=== PATIENT | female | born 1940 | race Caucasian/White ===

== ENCOUNTER → 2018-02-19 | Day surgery (SDC) | payer MEDICARE, OTHER ==
[~2018-02-19] MED LIST: Lactated Ringers 1,000 ML IV SCH; Propofol 200 MG/20 ML SDV IV ONE
--- NOTE | 2018-02-19 10:02 | OR ---
DATE OF OPERATION: 02/19/2018 PREOPERATIVE DIAGNOSIS: FAMILY HISTORY OF COLON CANCER. POSTOPERATIVE DIAGNOSIS: FAMILY HISTORY OF COLON CANCER. SURGEON: Bairon Nieves MD PROCEDURE: FULL-LENGTH COLONOSCOPY WITH BIOPSIES X1. ANESTHESIA: GUN PROFILER. COMPLICATIONS: None. SPECIMEN: Biopsy x1 submucosal lipoma. FINDINGS: 1. Full-length colonoscopy. 2. Mild sigmoid diverticulosis. 3. Small submucosal lipoma, distal transverse colon. RECOMMENDATIONS: Followup colonoscopy in 5 years. INDICATIONS: The patient is due for routine colonoscopy for an indication of colon cancer in the family. DESCRIPTION OF PROCEDURE: The patient was prepped and draped, placed in the left lateral decubitus position. A lubricated Olympus colonoscope was inserted and easily and safely advanced to the cecum. Direct visualization of the ileocecal valve and appendiceal orifice was accomplished. The bowel prep was adequate. Upon withdrawal of the scope, cecum, ascending and most transverse colon were completely benign and in its distal portion before the splenic flexure, the patient had a small what appeared to be a submucosal lipoma. Biopsy was taken for confirmation. The rest of the descending colon was benign. The patient had scattered diverticular disease in the sigmoid area, mild to moderate in severity without any acute inflammatory change. A left-sided colon had no signs of any polyps, mass, ulceration, or bleeding sites. No vascular abnormalities or signs of colitis. Rectal vault was benign. Retroflexion of the scope in the rectum showed no anal lesions. Air was suctioned. Scope was removed without complication. MEE/ROMAN /[id number]
== END ==
LOC: CC.SDS 06:59
PROVIDERS: ATTEND Family Medicine
DX: Z12.11 Encounter for screening for malignant neoplasm of colon (principal); K63.5 Polyp of colon; K57.30 Diverticulosis of large intestine without perforation or abscess without bleeding; I10 Essential (primary) hypertension; J44.9 Chronic obstructive pulmonary disease, unspecified; H91.93 Unspecified hearing loss, bilateral; F17.210 Nicotine dependence, cigarettes, uncomplicated; E78.00 Pure hypercholesterolemia, unspecified; Z79.82 Long term (current) use of aspirin; Z79.899 Other long term (current) drug therapy; Z80.0 Family history of malignant neoplasm of digestive organs
CPT/HCPCS: J2704; J7120